=== PATIENT | male | born 1995 | race Caucasian/White ===

== ENCOUNTER 2018-12-01 11:47 | Emergency (ER) | payer SELFPAY ==
[~2018-12-01] VITALS: Ht 175.3 cm; Wt 77.1 kg
[2018-12-01 11:49] VITALS: BP 108/59; Ht 175.3 cm; Wt 77.1 kg
== END 2018-12-01 12:35 | disposition other institution (70) ==
LOC: ED 11:47
DX: S00.31XA Abrasion of nose, initial encounter (principal); W18.30XA Fall on same level, unspecified, initial encounter; Y93.89 Activity, other specified; Y92.89 Other specified places as the place of occurrence of the external cause; Y99.8 Other external cause status
CPT/HCPCS: 90715

== ENCOUNTER 2018-12-01 11:47 | Emergency (ER) | payer OTHER | END 2018-12-01 12:38 | disposition other institution (70) | LOC: ED 11:47 | DX: Z02.89 Encounter for other administrative examinations (principal) ==